=== PATIENT | male | born 1960 | race Caucasian/White ===

== ENCOUNTER 2017-10-03 12:27 | Emergency (ER) | payer BC ==
[2017-10-03] MEDS: LIDOCAINE WITH 8.4% SOD BICARB 3 ML DISP.SYRIN. INJ ×2 (12:55)
[2017-10-03] MEDS: ceFAZolin IM 1 GM VIAL IM ×2 (13:18)
[2017-10-03] MEDS: TETANUS AND DIPHTHERIA TOX/PF 0.5 ML DISP.SYRIN. VAX IM ×2 (13:25)
[2017-10-03] MEDS ORDERED: LIDOCAINE WITH 8.4% SOD BICARB 3 ML DISP.SYRIN. INJ ×2 (15:15)
== END 2017-10-03 15:45 | disposition home or self-care (01) ==
LOC: ER 12:27
DX: S61.412A Laceration without foreign body of left hand, initial encounter (principal); S66.327A Laceration of extensor muscle, fascia and tendon of left little finger at wrist and hand level, initial encounter; E78.00 Pure hypercholesterolemia, unspecified; F41.9 Anxiety disorder, unspecified; W31.2XXA Contact with powered woodworking and forming machines, initial encounter; Y93.89 Activity, other specified; Y92.89 Other specified places as the place of occurrence of the external cause; Y99.8 Other external cause status
CPT/HCPCS: 12002; 73130; 90471; 90714; 96372; 99284-25; 99285-25; J0690